=== PATIENT | male | born 1950 | race Caucasian/White ===

== ENCOUNTER 2020-10-23 11:03 | Outpatient (CLI) | payer MEDICARE | END 2020-10-23 11:04 | disposition home or self-care (01) | LOC: LAB.S 11:03 | PROVIDERS: ATTEND Transplant Surgery | DX: C61 Malignant neoplasm of prostate (principal) | CPT/HCPCS: 36415; 84153 ==

== ENCOUNTER 2021-05-06 10:47 | Outpatient (CLI) | payer MEDICARE, OTHER | END 2021-05-06 10:48 | disposition home or self-care (01) | LOC: LAB.S 10:47 | PROVIDERS: ATTEND Transplant Surgery | DX: C61 Malignant neoplasm of prostate (principal) | CPT/HCPCS: 36415; 84153 ==

== ENCOUNTER 2021-08-13 08:39 | Outpatient (CLI) | payer MEDICARE, OTHER ==
[2021-08-13 14:54] LABS: BASOPHILS % (AUTO) 0.9 %; EOSINOPHILS % (AUTO) 0.9 %; HCT - HEMATOCRIT 44.4 % (42.0-52.0); HGB - HEMOGLOBIN 14.7 g/dL (14.0-18.0); LYMPHOCYTES # (AUTO) 1.2 10^3/uL (1.5-3.5); LYMPHOCYTES % (AUTO) 26.4 %; MEAN CORPUSCULAR HEMOGLOBIN 30.4 pg (27.0-31.0); MEAN CORPUSCULAR HGB CONC 33.1 g/dL (32.0-36.0); MEAN CORPUSCULAR VOLUME 91.9 fL (80.0-94.0); MEAN PLATELET VOLUME 10.3 fL (7.4-11.4); MONOCYTES # (AUTO) 0.5 10^3/uL (0.0-1.0); MONOCYTES % (AUTO) 10.1 %; NEUTROPHILS # (AUTO) 2.9 10^3/uL (1.5-6.6); NEUTROPHILS % (AUTO) 61.5 %; PLT - PLATELET COUNT 215 10^3/uL (130-450); RED BLOOD COUNT 4.83 10^6/uL (4.70-6.10); RED CELL DISTRIBUTION WIDTH 12.9 % (12.0-15.0); WHITE BLOOD COUNT 4.7 x10^3/uL (4.8-10.8)
[2021-08-13 15:39] LABS: ALBUMIN 4.1 g/dL (3.2-5.5); ALBUMIN/GLOBULIN RATIO 1.6 (1.0-2.2); ALKALINE PHOSPHATASE 38 IU/L (42-121); ALT ALANINE AMINOTRANSFERASE 13 IU/L (10-60); AST ASPARTATE AMINOTRANSFERASE 23 IU/L (10-42); BUN - BLOOD UREA NITROGEN 17 mg/dL (6-20); CALCIUM 9.1 mg/dL (8.5-10.3); CARBON DIOXIDE - CO2 27 mmol/L (21-32); CHLORIDE 103 mmol/L (101-111); CHOL/HDL RATIO 2.6 (<5.0); CHOLESTEROL 229 mg/dL; GFR - MDRD 74 (>89); GLUCOSE 117 mg/dL (70-100); HDL CHOLESTEROL 88 mg/dL; LDL CHOLESTEROL,CALCULATED 131 mg/dL; LDL/HDL RATIO 1.5 (<3.6); POTASSIUM 4.2 mmol/L (3.5-5.0); SODIUM 137 mmol/L (135-145); TOTAL PROTEIN 6.6 g/dL (6.7-8.2); TRIGLYCERIDES 52 mg/dL; VLDL CHOLESTEROL 10 mg/dL
== END 2021-08-13 08:40 | disposition home or self-care (01) ==
LOC: LAB.S 08:39
PROVIDERS: ATTEND Internal Medicine
DX: Z79.899 Other long term (current) drug therapy (principal); Z13.220 Encounter for screening for lipoid disorders
CPT/HCPCS: 36415; 80053; 80061; 83721; 85025

== ENCOUNTER 2021-11-05 08:00 | Outpatient (CLI) | payer MEDICARE, OTHER ==
--- NOTE | 2021-11-05 16:06 | XRAY Report ---
PROCEDURE: Chest 2 View X-Ray INDICATIONS: FATIGUE AND MALAISE/COUGH TECHNIQUE: 2 view(s) of the chest. COMPARISON: None. FINDINGS: Surgical changes and devices: None. Lungs and pleura: Hyperinflation suggesting COPD. No pleural effusions or pneumothorax. Lungs are c lear. Mediastinum: Mediastinal contours are normal. Heart size is normal. Bones and chest wall: No suspicious bony abnormalities. Soft tissues appear unremarkable. IMPRESSION: No acute cardiopulmonary disease. COPD. Reviewed by: Radha Morales MD on 11/05/2021 4:05 PM PDT Approved by: Radha Morales MD on 11/05/2021 4:05 PM PDT Station ID: [id number]
== END 2021-11-05 23:59 | disposition home or self-care (01) ==
LOC: DI.S 08:00
PROVIDERS: ATTEND Registered Nurse
DX: R53.83 Other fatigue (principal); R05.9 Cough, unspecified

== ENCOUNTER 2021-12-15 10:57 | Outpatient (CLI) | payer MEDICARE, OTHER | END 2021-12-15 10:58 | disposition home or self-care (01) | LOC: LAB.S 10:57 | PROVIDERS: ATTEND Transplant Surgery | DX: C61 Malignant neoplasm of prostate (principal) | CPT/HCPCS: 36415; 84153 ==

== ENCOUNTER 2022-05-03 13:02 | Outpatient (CLI) | payer MEDICARE, OTHER ==
--- NOTE | 2022-05-03 16:56 | XRAY Report ---
PROCEDURE: Chest 2 View X-Ray INDICATIONS: PERSONAL HISTORY OF PNEUMONIA TECHNIQUE: 2 view(s) of the chest. COMPARISON: 11/05/2021 FINDINGS: Surgical changes and devices: None. Lungs and pleura: No pleural effusions or pneumothorax. Lungs are clear. Mediastinum: Mediastinal contours are normal. Heart size is normal. Bones and chest wall: No suspicious bony abnormalities. Soft tissues appear unremarkable. IMPRESSION: No acute process. Reviewed by: Tiara Velasquez MD on 05/03/2022 4:55 PM PDT Approved by: Tiara Velasquez MD on 05/03/2022 4:55 PM PDT Station ID: [id number]
== END 2022-05-03 13:03 | disposition home or self-care (01) ==
LOC: DI.S 13:02
PROVIDERS: ATTEND Registered Nurse
DX: Z87.01 Personal history of pneumonia (recurrent) (principal)

== ENCOUNTER 2022-07-01 09:24 | Outpatient (CLI) | payer MEDICARE, OTHER | END 2022-07-01 09:25 | disposition home or self-care (01) | LOC: RT 09:24 | PROVIDERS: ATTEND Registered Nurse | DX: Z87.01 Personal history of pneumonia (recurrent) (principal) | CPT/HCPCS: 94010 ==

== ENCOUNTER 2022-08-11 11:35 | Outpatient (CLI) | payer MEDICARE, OTHER | END 2022-08-11 11:36 | disposition home or self-care (01) | LOC: LAB.S 11:35 | PROVIDERS: ATTEND Transplant Surgery | DX: C61 Malignant neoplasm of prostate (principal) | CPT/HCPCS: 36415; 84153 ==

== ENCOUNTER 2022-10-14 08:55 | Outpatient (CLI) | payer MEDICARE, OTHER ==
[2022-10-14 14:31] LABS: BASOPHILS % (AUTO) 0.8 %; EOSINOPHILS # (AUTO) 0.1 10^3/uL (0.0-0.7); EOSINOPHILS % (AUTO) 1.6 %; HCT - HEMATOCRIT 44.4 % (42.0-52.0); HGB - HEMOGLOBIN 14.6 g/dL (14.0-18.0); LYMPHOCYTES # (AUTO) 1.4 10^3/uL (1.5-3.5); LYMPHOCYTES % (AUTO) 27.1 %; MEAN CORPUSCULAR HEMOGLOBIN 30.3 pg (27.0-31.0); MEAN CORPUSCULAR HGB CONC 32.9 g/dL (32.0-36.0); MEAN CORPUSCULAR VOLUME 92.1 fL (80.0-94.0); MEAN PLATELET VOLUME 10.1 fL (7.4-11.4); MONOCYTES # (AUTO) 0.5 10^3/uL (0.0-1.0); MONOCYTES % (AUTO) 10.2 %; NEUTROPHILS % (AUTO) 60.1 %; PLT - PLATELET COUNT 205 10^3/uL (130-450); RED BLOOD COUNT 4.82 10^6/uL (4.70-6.10); RED CELL DISTRIBUTION WIDTH 13.3 % (12.0-15.0)
[2022-10-14 14:53] LABS: ALBUMIN 3.7 g/dL (3.2-5.5); ALBUMIN/GLOBULIN RATIO 1.3 (1.0-2.2); ALKALINE PHOSPHATASE 41 IU/L (42-121); ALT ALANINE AMINOTRANSFERASE 12 IU/L (10-60); AST ASPARTATE AMINOTRANSFERASE 21 IU/L (10-42); BILIRUBIN,TOTAL 0.6 mg/dL (0.2-1.0); BUN - BLOOD UREA NITROGEN 16 mg/dL (6-20); CALCIUM 8.8 mg/dL (8.5-10.3); CARBON DIOXIDE - CO2 29 mmol/L (21-32); CHLORIDE 106 mmol/L (101-111); CHOL/HDL RATIO 2.5 (<5.0); CHOLESTEROL 197 mg/dL; CREATININE 0.9 mg/dL (0.6-1.2); GFR - MDRD 83 (>89); GLUCOSE 122 mg/dL (70-100); HDL CHOLESTEROL 80 mg/dL; LDL CHOLESTEROL,CALCULATED 109 mg/dL; LDL/HDL RATIO 1.4 (<3.6); POTASSIUM 4.3 mmol/L (3.5-5.0); SODIUM 139 mmol/L (135-145); TOTAL PROTEIN 6.5 g/dL (6.7-8.2); TRIGLYCERIDES 40 mg/dL; VLDL CHOLESTEROL 8 mg/dL
[2022-10-14 15:08] LABS: THYROID STIMULATING HORMONE 1.03 uIU/mL (0.34-5.60)
== END 2022-10-14 08:56 | disposition home or self-care (01) ==
LOC: LAB.S 08:55
PROVIDERS: ATTEND Registered Nurse
DX: Z79.899 Other long term (current) drug therapy (principal); Z13.228 Encounter for screening for other metabolic disorders; Z13.220 Encounter for screening for lipoid disorders; Z13.29 Encounter for screening for other suspected endocrine disorder; Z13.0 Encounter for screening for diseases of the blood and blood-forming organs and certain disorders involving the immune mechanism
CPT/HCPCS: 36415; 80053; 80061; 83721; 84443; 85025

== ENCOUNTER 2022-10-26 10:18 | Outpatient (CLI) | payer MEDICARE, OTHER | END 2022-10-26 10:19 | disposition home or self-care (01) | LOC: LAB.S 10:18 | PROVIDERS: ATTEND Registered Nurse | DX: C61 Malignant neoplasm of prostate (principal) | CPT/HCPCS: 36415; 84153 ==

== ENCOUNTER 2022-11-09 09:49 | Outpatient (CLI) | payer MEDICARE, OTHER ==
[2022-11-09 21:01] LABS: ESTIMATED AVERAGE GLUCOSE 105 mg/dL (70-100); HEMOGLOBIN A1c% 5.3 % (4.27-6.07)
== END 2022-11-09 09:50 | disposition home or self-care (01) ==
LOC: LAB.S 09:49
PROVIDERS: ATTEND Registered Nurse
DX: R73.9 Hyperglycemia, unspecified (principal)
CPT/HCPCS: 36415; 82947; 83036

== ENCOUNTER 2022-11-23 08:55 | Outpatient (CLI) | payer MEDICARE, OTHER ==
--- NOTE | 2022-11-23 10:17 | Ultrasound Report ---
PROCEDURE: Aorta Screening INDICATIONS: HIST OF SMOKING TECHNIQUE: Real time scanning was performed of the aorta and iliac arteries, with image documentatio n. COMPARISON: None. FINDINGS: Aorta: Proximal aortic diameter measures 2.2 cm. Mid-aorta measures 2 cm. Distal aortic diameter i s 2 cm. Iliac arteries: Right common iliac artery measures 1.1 cm. Left common iliac artery measures 1.1 cm . IMPRESSION: No infrarenal aortic aneurysm. Reviewed by: Julian Lizama on 11/23/2022 10:16 AM [email or web address] Approved by: Julian Lizama on 11/23/2022 10:16 AM PDT Station ID: [id number]
--- NOTE | 2022-11-23 13:23 | CT Report ---
PROCEDURE: CHEST WO INDICATIONS: HIST OF SMOKING TECHNIQUE: Noncontrast 1mm axial images were acquired from the pulmonary apices to the posterior costophrenic an gles. Axial 5 mm soft tissue kernel reconstructions were performed as well as 8 mm axial MIP and cor onal and sagittal 5 mm reformations. For radiation dose reduction, the following was used: automate d exposure control, adjustment of mA and/or kV according to patient size. COMPARISON: Chest radiographs 05/03/2022. FINDINGS: Images are denoted as (series #/image #). Lymph nodes: No evidence of thoracic lymphadenopathy however evaluation for mediastinal and hilar patel nopathy is limited in the absence of intravenous contrast. Vasculature: Aorta and main pulmonary artery diameters are within normal range. Heart: No pericardial effusion. Minimal coronary artery calcifications present. Lung parenchyma and pleura: No consolidation, pleural effusion, or pneumothorax. Minimal clustered ce ntrilobular/tree-in-bud nodules at the right middle lobe. 3 mm lateral left lower lobe nodules (4/244 , 272). 2 mm right upper lobe nodule (4/105). Airways: Few foci of peripheral airways mucous plugging present. Chest wall/musculoskeletal: Multilevel degenerative change of the visualized spine. Visualized upper abdomen: Nonobstructing nephrolithiasis bilaterally. IMPRESSION: 1. A few small pulmonary nodules are present as above. Follow-up could be obtained in 12 months or ot her interval at clinical discretion. 2. Scattered areas of peripheral airways mucous plugging are present. Minimal clustered micronodulari ty at the right middle lobe also present, likely infectious/inflammatory. 3. Nonobstructing renal stones present bilaterally. Reviewed by: Lalo Lewis MD on 11/23/2022 1:21 PM PDT Approved by: Lalo Lewis MD on 11/23/2022 1:21 PM PDT Station ID: [id number]
== END 2022-11-23 08:56 | disposition home or self-care (01) ==
LOC: DI 08:55
PROVIDERS: ATTEND Registered Nurse
DX: Z13.6 Encounter for screening for cardiovascular disorders (principal); Z87.891 Personal history of nicotine dependence; Z80.1 Family history of malignant neoplasm of trachea, bronchus and lung; R91.8 Other nonspecific abnormal finding of lung field; T17.890A Other foreign object in other parts of respiratory tract causing asphyxiation, initial encounter

== ENCOUNTER 2023-01-03 08:41 | Outpatient (CLI) | payer MEDICARE, OTHER | END 2023-01-03 08:42 | disposition home or self-care (01) | LOC: LAB 08:41 | PROVIDERS: ATTEND Registered Nurse | DX: Z53.9 Procedure and treatment not carried out, unspecified reason (principal) ==

== ENCOUNTER 2023-05-03 11:17 | Outpatient (CLI) | payer MEDICARE, OTHER | END 2023-05-03 11:18 | disposition home or self-care (01) | LOC: LAB.S 11:17 | PROVIDERS: ATTEND Transplant Surgery | DX: C61 Malignant neoplasm of prostate (principal) | CPT/HCPCS: 36415; 84153 ==

== ENCOUNTER 2023-06-08 14:16 | Outpatient (CLI) | payer MEDICARE, OTHER ==
--- NOTE | 2023-06-08 20:25 | CT Report ---
PROCEDURE: CHEST WO INDICATIONS: ATYPICAL MYCOBACTERIAL INFECTION OF LUNG TECHNIQUE: Noncontrast 1mm axial images were acquired from the pulmonary apices to the posterior costophrenic an gles. Axial 5 mm soft tissue kernel reconstructions were performed as well as 8 mm axial MIP and cor onal and sagittal 5 mm reformations. For radiation dose reduction, the following was used: automate d exposure control, adjustment of mA and/or kV according to patient size. COMPARISON: CT chest 11/23/2022 FINDINGS: Image quality: Good, mildly degraded by motion artifact. Lungs and pleura: No consolidation. No pleural effusions. No pneumothorax. Stable sub-6 mm pulmonary nodules. No new or enlarging pulmonary nodules. Similar tree-in-bud nodularity in the right middle l obe. Mediastinum: Heart size is normal. No pericardial effusion. No large vessel abnormality. No mediastin al adenopathy by size criteria. Minimal coronary artery calcifications. Chest wall and lower neck: Thyroid is unremarkable. No axillary or supraclavicular adenopathy by size . Bones: No aggressive osseous abnormality. Upper Abdomen: Nonobstructing right superior pole 4 mm calculus. No hydronephrosis. Subcentimeter hep atic hypodensity (2/63), possible cyst versus hemangioma. IMPRESSION: Compared to prior CT 11/23/2022, similar focal area of tree in bud nodularity in the right middle lobe, likely infectious/inflammatory etiology. No new or enlarging pulmonary nodule. Stable sub-6 mm pulmo nary nodules. Reviewed by: Frances Abebe MD on 06/08/2023 8:23 PM PST Approved by: Frances Abebe MD on 06/08/2023 8:23 PM PST Station ID: [id number]
== END 2023-06-08 14:17 | disposition home or self-care (01) ==
LOC: DI 14:16
PROVIDERS: ATTEND Registered Nurse
DX: R91.8 Other nonspecific abnormal finding of lung field (principal); A31.0 Pulmonary mycobacterial infection

== ENCOUNTER 2023-10-26 08:23 | Outpatient (CLI) | payer MEDICARE, OTHER ==
[2023-10-26 14:40] LABS: BASOPHILS # (AUTO) 0.1 10^3/uL (0.0-0.1); BASOPHILS % (AUTO) 1.1 %; EOSINOPHILS # (AUTO) 0.1 10^3/uL (0.0-0.7); EOSINOPHILS % (AUTO) 1.4 %; HCT - HEMATOCRIT 45.3 % (42.0-52.0); HGB - HEMOGLOBIN 14.3 g/dL (14.0-18.0); LYMPHOCYTES # (AUTO) 1.3 10^3/uL (1.5-3.5); LYMPHOCYTES % (AUTO) 30.6 %; MEAN CORPUSCULAR HEMOGLOBIN 29.8 pg (27.0-31.0); MEAN CORPUSCULAR HGB CONC 31.6 g/dL (32.0-36.0); MEAN CORPUSCULAR VOLUME 94.4 fL (80.0-94.0); MEAN PLATELET VOLUME 10.4 fL (7.4-11.4); MONOCYTES # (AUTO) 0.4 10^3/uL (0.0-1.0); MONOCYTES % (AUTO) 9.9 %; NEUTROPHILS # (AUTO) 2.5 10^3/uL (1.5-6.6); NEUTROPHILS % (AUTO) 56.5 %; PLT - PLATELET COUNT 207 10^3/uL (130-450); RED CELL DISTRIBUTION WIDTH 13.3 % (12.0-15.0); WHITE BLOOD COUNT 4.4 x10^3/uL (4.8-10.8)
[2023-10-26 15:17] LABS: THYROID STIMULATING HORMONE 1.18 uIU/mL (0.34-5.60)
[2023-10-26 15:57] LABS: ALBUMIN/GLOBULIN RATIO 1.4 (1.0-2.2); ALKALINE PHOSPHATASE 43 IU/L (42-121); ALT ALANINE AMINOTRANSFERASE 11 IU/L (10-60); AST ASPARTATE AMINOTRANSFERASE 21 IU/L (10-42); BILIRUBIN,TOTAL 0.5 mg/dL (0.2-1.0); BUN - BLOOD UREA NITROGEN 15 mg/dL (6-20); CALCIUM 9.7 mg/dL (8.5-10.3); CARBON DIOXIDE - CO2 30 mmol/L (21-32); CHLORIDE 107 mmol/L (101-111); CHOL/HDL RATIO 2.5 (<5.0); CHOLESTEROL 192 mg/dL; CREATININE 0.9 mg/dL (0.6-1.3); GFR - MDRD 83 (>89); GLUCOSE 102 mg/dL (74-104); HDL CHOLESTEROL 77 mg/dL; LDL CHOLESTEROL,CALCULATED 102 mg/dL; LDL/HDL RATIO 1.3 (<3.6); POTASSIUM 4.5 mmol/L (3.5-4.5); SODIUM 141 mmol/L (135-145); TOTAL PROTEIN 6.8 g/dL (6.4-8.9); TRIGLYCERIDES 66 mg/dL (48-352); VLDL CHOLESTEROL 13 mg/dL
== END 2023-10-26 08:24 | disposition home or self-care (01) ==
LOC: LAB.S 08:23
PROVIDERS: ATTEND Registered Nurse
DX: A31.0 Pulmonary mycobacterial infection (principal); Z12.5 Encounter for screening for malignant neoplasm of prostate; Z13.228 Encounter for screening for other metabolic disorders; Z13.220 Encounter for screening for lipoid disorders; Z13.29 Encounter for screening for other suspected endocrine disorder; Z13.0 Encounter for screening for diseases of the blood and blood-forming organs and certain disorders involving the immune mechanism; Z79.899 Other long term (current) drug therapy
CPT/HCPCS: 36415; 80053; 80061; 81599; 84443; 85025; G0103; 83721; 84153